=== PATIENT | female | born 1955 | race Caucasian/White ===

== ENCOUNTER → 2020-03-12 | Outpatient (CLI) | payer MEDICARE ==
--- NOTE | 2020-03-12 16:16 | 2DMMODE ---
[place] [address] 2 D/M-MODE ECHOCARDIOGRAM Name: MARY SUAREZ Room: [facility]#: [id number] Admission: 03/12/20 Attend Phys: Carl Soria, Discharge: Date of : 55 Date of Service: 03/12/20 1614 Report #: [id number] THIS REPORT FOR: cc: Julianna Blancas MD, K. Gay MD [place], Michael J. MD [facility] ~ APPROVED REPORT Study performed: 03/12/2020 14:37:34 EXAM: Comprehensive 2D, Doppler, and color-flow Echocardiogram Patient Location: Out-Patient BSA: 1.76 HR: 60 bpm BP: 133/87 mmHg Other Information Study Quality: Good Indications Dyspnea Chest Pain 2D Dimensions IVSd: 11.84 (7-11mm) LVOT Diam: 19.95 (18-24mm) LVDd: 40.63 mm PWd: 10.48 (7-11mm) Ascending Ao: 31.21 (22-36mm) LVDs: 17.62 (25-40mm) Aortic Root: 24.10 mm Volumes Left Atrial Volume (Systole) LA ESV Index: 10.90 mL/m2 Aortic Valve AoV Peak Que.: 1.59 m/s AO Peak Gr.: 10.10 mmHg LVOT Max P.69 mmHg AO Mean Gr.: 4.98 mmHg LVOT Mean P.53 mmHg LVOT Max V: 1.47 m/s AO V2 VTI: 30.50 cm LVOT Mean V: 0.83 m/s ALAN (VTI): 3.49 cm2 LVOT V1 VTI: 34.01 [place] [address] 2 D/M-MODE ECHOCARDIOGRAM Name: MARY SUAREZ Room: [facility]#: [id number] Admission: 03/12/20 Attend Phys: Carl Soria, Discharge: Date of : 55 Date of Service: 03/12/20 1614 Report #: [id number] E/A Ratio: 1.14 MV Decel. Time: 234.13 ms MV E Max Que.: 0.91 m/s MV PHT: 67.90 ms MVA (PHT): 3.24 cm2 TDI E/Lateral E': 13.00 E/Medial E': 9.10 Medial E' Que.: 0.10 m/s Lateral E' Que.: 0.07 m/s Pulmonary Valve PV Peak Que.: 0.96 m/s PV Peak Gr.: 3.71 mmHg Tricuspid Valve RAP Estimate: 5.00 mmHg TR Peak Gr.: 16.07 mmHg RVSP: 21.07 mmHg PA Pressure: 21.07 mmHg Left Ventricle The left ventricle is normal size. There is normal LV segmental wall motion. There is normal left ventricular wall thickness. Left ventricular systolic function is normal. LVEF is 60-65%. Transmitral Doppler flow pattern suggests impaired LV relaxation. Right Ventricle The right ventricle is normal size. The right ventricular systolic function is normal. Atria The left atrium size is normal. The right atrium size is normal. Aortic Valve The aortic valve is normal in structure. Trace aortic regurgitation. There is no aortic valvular stenosis. Mitral Valve The mitral valve is normal in structure. Mild mitral regurgitation. No evidence of mitral valve stenosis. Tricuspid Valve The tricuspid valve is normal in structure. Mild tricuspid regurgitation. No pulmonary hypertension[place] [address] 2 D/M-MODE ECHOCARDIOGRAM Name: MARY SUAREZ Room: [facility]#: [id number] Admission: 03/12/20 Attend Phys: Carl Soria, Discharge: Date of : 55 Date of Service: 03/12/20 1614 Report #: [id number] The pulmonary valve is normal in structure. Mild pulmonic regurgitation. Great Vessels The aortic root is normal in size. IVC is normal in size and collapses >50% with inspiration. Pericardium There is no pericardial effusion. <Conclusion> The left ventricle is normal size. There is normal left ventricular wall thickness. Left ventricular systolic function is normal. LVEF is 60-65%. Transmitral Doppler flow pattern suggests impaired LV relaxation. Mild mitral regurgitation. Mild tricuspid regurgitation. No pulmonary hypertension. IVC is normal in size and collapses >50% with inspiration. <ELECTRONICALLY SIGNED> By: Carl Soria MD, FACC 03/12/20 1614 1614 1614 Carl Soria MD, FACC /INF
--- NOTE | 2020-03-14 12:20 | CARDNUC ---
[place] [address] CARDIAC NUCLEAR IMAGING REPORT Name: DANIELAMARY K Room: [facility]#: [id number] Admission: 03/12/20 Attend Phys: Carl Soria, Discharge: Date of : 55 Date of Service: 03/14/20 1218 Report #: [id number] THIS REPORT FOR: cc: Julianna Blancas MD, K. Gay MD [place], Michael J. MD [facility] ~ ADDENDUM APPROVED REPORT Imaging Protocol: Stress Tc-99m/Rest Tc-99m 2 days Study performed: 03/12/2020 14:48:55 Indication: Chest pain, Dyspnea Patient Location: Out-Patient Stress Tech: Soraya Combs Stress Nurse: Brenna Brown RN Ht: 5 ft 2 in Wt: 170 lbs BSA: 1.78 m2 BMI: 31.09 Medical History Medical History: Angina, Dyspnea, HX CVA/Aneurysm/coil, HTN, HLD, Former smoker, Hip replacement. Medications: ASA 81 mg, Quinapril, Atorvastatin. Allergies: T-dap, Chantix, Flagyl. Cardiac Risk Factors: Age, FHX of CAD, HTN, Hyperlipidemia, SOB, Past Smoker. Previous Cardiac Procedures: None Pretest Chest Pain Characteristics: No chest pain Exercise History: Indeterminate Physical Disabilities: Hip replacement, Unstable gait. Meds Held (24 hrs): None Resting Data Rest SPECT myocardial perfusion imaging was performed in supine position 30 minutes following the intravenous injection of 9.7 mCi of Tc-99m Sestamibi. Time of rest injection: 13:05 The images were gated to evaluate regional wall motion and calculate left ventricular ejection fraction. Administration Route: IV Administration Site: Right AC Pharmacologic Stress Pharmacologic stress test was performed by injecting Regadenoson 0.4 [place] [address] CARDIAC NUCLEAR IMAGING REPORT Name: MARY SUAREZ Room: [facility]#: [id number] Admission: 03/12/20 Attend Phys: Carl Soria, Discharge: Date of : 55 Date of Service: 03/14/20 1218 Report #: [id number] mg IV push over 10-15 seconds immediately followed by the intravenous injection of 34.0 mCi of Tc-99m Sestamibi. Time of stress injection: 14:40 Administration Route: IV Administration Site: Right AC Heart Rate at time of stress injection: 94 bpm. Gated Stress SPECT was performed 40 minutes after stress injection. The images were gated to evaluate regional wall motion and calculate left ventricular ejection fraction. Prone imaging was performed. Stress Test Details Stress Test: Pharmacologic stress testing performed using 0.4 mg of regadenoson per 5 mL given IV over 10 seconds. Reason for pharmacologic stress test: Hip replacement, unstable gait.. HR Max Heart Rate (APMHR): 156 bpm Resting HR: 56 bpm Target HR (85% APMHR): 132 bpm Max HR Achieved: 94 bpm % of APMHR: 60 Recovery HR: 78 bpm BP Resting BP: 133/87 mmHg Max BP: 137/85 mmHg Recovery BP: 156/82 mmHg ECG Resting ECG: Sinus Rhythm Stress ECG: Sinus Rhythm ST Change: None Arrhythmia: None Recovery ECG: Sinus Rhythm Recovery ST Change: None Recovery Arrhythmia: None Clinical Reason for Termination: Completed protocol Stress Symptoms: Dyspnea, Abdominal discomfort, Headache. Exercise duration: 00 min 00 sec Exercise capacity: 1.00 METs The patient tolerated Lexiscan infusion without significant cardiac symptoms[place] [address] CARDIAC NUCLEAR IMAGING REPORT Name: MARY SUAREZ Room: [facility]#: [id number] Admission: 03/12/20 Attend Phys: Carl Soria, Discharge: Date of : 55 Date of Service: 03/14/20 1218 Report #: [id number] A 64 year old female presented for a sitting Lexiscan r/t chest pain and dyspnea. Test well tolerated. Recovery unremarkable with PO caffeine. Patient was escorted by staff to Echo then to Nuclear Medicine for imaging. Patient was stable and stated she felt good at that time. Stress ECG Conclusion The baseline 12-lead EKG shows sinus rhythm without significant ST segment or T-wave abnormality. EKGs obtained during and post Lexiscan stress show sinus rhythm with no significant ST segment or T-wave changes when compared to baseline. There were no stress-induced arrhythmias. Study Quality Study: Good Artifact: No artifact Study Data At rest, the left ventricular ejection fraction was 76%.. Post stress, the left ventricular ejection was 78%.. TID = 0.88. Perfusion Perfusion images obtained at rest and post Lexiscan stress show uniform uptake of the radioisotope throughout the myocardium without defect. Wall Motion Gated images show normal left ventricular function with normal wall motion. Nuclear Conclusion ECG Findings: negative for ischemia Clinical Findings: negative for ischemia Nuclear Findings: negative for ischemia Exercise Capacity: not assessed Left Ventricular Function: normal Risk Study: low Perfusion images show no defect to suggest infarct or ischemia. Left ventricular systolic function appears normal on gated studies. This is a low risk study. <Conclusion> The baseline 12-lead EKG shows sinus rhythm without significant ST segment or T-wave abnormality. EKGs obtained during and post Lexiscan stress show sinus rhythm with no significant ST [place] [address] CARDIAC NUCLEAR IMAGING REPORT Name: MARY SUAREZ Room: [facility]#: [id number] Admission: 03/12/20 Attend Phys: Carl Soria, Discharge: Date of : 55 Date of Service: 03/14/20 1218 Report #: [id number] changes when compared to baseline. There were no stress-induced arrhythmias. <ELECTRONICALLY SIGNED> By: Carl Soria MD, FACC 03/14/208 17 17 Carl Soria MD, FACC /INF
== END ==
LOC: M.NUC 01-10 16:04 → M.CRD 02-05 09:00 → M.NUC 02-05 09:00
DX: I08.8 Other rheumatic multiple valve diseases (principal)